=== PATIENT | male | born 1990 | race Caucasian/White ===

== ENCOUNTER 2016-09-26 17:24 | Inpatient (IN) | payer OTHER ==
[~2016-09-26] VITALS: Ht 177.8 cm; Wt 79.4 kg
[2016-09-26 00:15] VITALS: BP_SYST 135; RESP 22; TEMP 100.2
[2016-09-26] MEDS ORDERED: SODIUM CHLORIDE 0.9% 1,000 ML ONE ×2 (17:53→18:06)
[2016-09-26] MEDS ORDERED: CEFTRIAXONE 1 GM VIAL ONE (21:01)
[2016-09-26] MEDS ORDERED: SODIUM CHLORIDE 0.9% 100 ML IV ONE (21:01)
[2016-09-26] MEDS ORDERED: MAG HYDROX 30 ML UDC PO PRN (22:10)
[2016-09-26] MEDS ORDERED: SALINE FLUSH 10 ML FLUSH PRN (22:10)
[2016-09-26] MEDS ORDERED: ACETAMINOPHEN 325 MG TAB PO PRN (22:10)
[2016-09-26] MEDS ORDERED: BISACODYL EC 5 MG TAB PO PRN (22:10)
[2016-09-26] MEDS ORDERED: ALU/MAG/SIM 30 ML UDC PO PRN (22:10)
[2016-09-26] MEDS ORDERED: BISACODYL 10 MG SUPP RECTAL PRN (22:10)
[2016-09-26] MEDS ORDERED: MORPHINE 2 MG/ML SYR IV PRN (22:10)
[2016-09-27] VITALS (13 sets, daily range): BP systolic 104–135; RESP 16–22; TEMP 97.1–104.9; BMI 25.1
[2016-09-27] MEDS: SODIUM CHLORIDE 0.9% FLUSH BAG 500 ML IV SCH ×2 (00:53)
[2016-09-27] MEDS ORDERED: MISSING DOSE XX ONE (01:00)
[2016-09-27] MEDS: ACETAMINOPHEN 325 MG TAB PO PRN (01:02)
[2016-09-27] MEDS: PIPERACIL/TAZO 3.375GM/50ML 50 ML IV SCH ×5 (01:11→23:13)
[2016-09-27] MEDS ORDERED: MAGNEVIST 15ML IV ONE (07:07)
[2016-09-27] MEDS: ENOXAPARIN 40 MG/0.4 ML SYR SUBQ SCH (09:09)
[2016-09-27] MEDS: SALINE FLUSH 10 ML FLUSH SCH ×2 (09:09→20:00)
[2016-09-27] MEDS: FAMOTIDINE 20 MG TAB PO SCH ×2 (09:09→21:10)
[2016-09-27] MEDS ORDERED: PHARMACY TO DOSE VANCOMYCIN IV SCH (14:15)
[2016-09-27] MEDS: VANCOMYCIN 1,250 MG in SODIUM CHLORIDE 0.9% 250 ML IV SCH ×2 (16:38→23:12)
[2016-09-27] MEDS: SODIUM CHLORIDE 0.9% 1,000 ML IV SCH (23:12)
[2016-09-28] VITALS (7 sets, daily range): BP systolic 117–138; RESP 16–18; TEMP 98.1–99.7
[2016-09-28] MEDS: MORPHINE 4 MG/ML SYR IV PRN ×5 (03:21→22:27)
[2016-09-28] MEDS: SODIUM CHLORIDE 0.9% FLUSH BAG 500 ML IV SCH ×2 (06:00)
[2016-09-28] MEDS: PIPERACIL/TAZO 3.375GM/50ML 50 ML IV SCH ×4 (06:06→23:04)
[2016-09-28] MEDS: SALINE FLUSH 10 ML FLUSH SCH ×2 (06:07→20:17)
[2016-09-28] MEDS: VANCOMYCIN 1,250 MG in SODIUM CHLORIDE 0.9% 250 ML IV SCH ×2 (08:55→16:25)
[2016-09-28] MEDS: ENOXAPARIN 40 MG/0.4 ML SYR SUBQ SCH (08:55)
[2016-09-28] MEDS: FAMOTIDINE 20 MG TAB PO SCH ×2 (08:55→20:17)
[2016-09-28] MEDS: SODIUM CHLORIDE 0.9% 1,000 ML IV SCH (14:43)
[2016-09-28] MEDS ORDERED: VANCOMYCIN 500 MG in SODIUM CHLORIDE 0.9% 100 ML IV ONE (18:00)
[2016-09-28] MEDS: VANCOMYCIN 1,750 MG in SODIUM CHLORIDE 0.9% 500 ML IV SCH (23:36)
[2016-09-29] MEDS: MORPHINE 4 MG/ML SYR IV PRN ×5 (03:05→21:26)
[2016-09-29 03:56] VITALS: BP_SYST 135; RESP 18; TEMP 98.7
[2016-09-29] MEDS: SODIUM CHLORIDE 0.9% FLUSH BAG 500 ML IV SCH ×2 (04:13)
[2016-09-29] MEDS: PIPERACIL/TAZO 3.375GM/50ML 50 ML IV SCH ×4 (07:00→23:07)
[2016-09-29 07:34] VITALS: BP_SYST 129; RESP 18; TEMP 97.5
[2016-09-29] MEDS: SALINE FLUSH 10 ML FLUSH SCH ×2 (08:00→20:34)
[2016-09-29] MEDS: SODIUM CHLORIDE 0.9% 1,000 ML IV SCH (08:38)
[2016-09-29] MEDS: FAMOTIDINE 20 MG TAB PO SCH ×2 (08:39→20:35)
[2016-09-29] MEDS: ENOXAPARIN 40 MG/0.4 ML SYR SUBQ SCH (08:39)
[2016-09-29] MEDS: VANCOMYCIN 1,750 MG in SODIUM CHLORIDE 0.9% 500 ML IV SCH ×2 (08:39→16:59)
[2016-09-29 11:52] VITALS: BP_SYST 122; RESP 18; TEMP 98
[2016-09-29 15:23] VITALS: BP_SYST 114; RESP 18; TEMP 98.4
[2016-09-29 19:30] VITALS: BP_SYST 113; RESP 18; TEMP 97.5
[2016-09-29] MEDS: LINEZOLID 600 MG TAB PO SCH (20:34)
[2016-09-29 22:30] VITALS: BP_SYST 98; RESP 18; TEMP 99.5
[2016-09-29] MEDS: ACETAMINOPHEN 325 MG TAB PO PRN (23:35)
[2016-09-30] MEDS: MORPHINE 4 MG/ML SYR IV PRN ×3 (01:21→09:40)
[2016-09-30] MEDS: SODIUM CHLORIDE 0.9% FLUSH BAG 500 ML IV SCH ×2 (02:28)
[2016-09-30 03:14] VITALS: BP_SYST 115; RESP 18; TEMP 98.9
[2016-09-30] MEDS: PIPERACIL/TAZO 3.375GM/50ML 50 ML IV SCH ×4 (05:17→23:36)
[2016-09-30 07:32] VITALS: BP_SYST 118; RESP 18; TEMP 98.3
[2016-09-30] MEDS: FAMOTIDINE 20 MG TAB PO SCH ×2 (08:17→20:22)
[2016-09-30] MEDS: SALINE FLUSH 10 ML FLUSH SCH ×2 (08:17→20:22)
[2016-09-30] MEDS: LINEZOLID 600 MG TAB PO SCH ×2 (08:17→20:22)
[2016-09-30] MEDS: ENOXAPARIN 40 MG/0.4 ML SYR SUBQ SCH (08:18)
[2016-09-30] MEDS: LIDOCAINE 5% 700 MG PATCH TOPICAL SCH (10:29)
[2016-09-30 11:25] VITALS: BP_SYST 127; RESP 16; TEMP 98.7
[2016-09-30] MEDS: OXYCODONE/APAP 5/325 TAB PO PRN ×2 (13:34→18:35)
[2016-09-30 15:50] VITALS: BP_SYST 116; RESP 16; TEMP 98.7
[2016-09-30] MEDS ORDERED: KCL CR 20 MEQ TAB PO ONE (16:40)
[2016-09-30 19:32] VITALS: BP_SYST 113; RESP 18; TEMP 97.9
[2016-09-30 22:58] VITALS: BP_SYST 108; RESP 18; TEMP 97.9
[2016-10-01] MEDS: OXYCODONE/APAP 5/325 TAB PO PRN ×5 (00:21→21:00)
[2016-10-01 02:59] VITALS: BP_SYST 108; RESP 18; TEMP 98.1
[2016-10-01] MEDS: SODIUM CHLORIDE 0.9% FLUSH BAG 500 ML IV SCH ×2 (03:56→05:30)
[2016-10-01] MEDS: PIPERACIL/TAZO 3.375GM/50ML 50 ML IV SCH ×2 (05:28→12:16)
[2016-10-01 07:10] VITALS: BP_SYST 118; RESP 18; TEMP 98.5
[2016-10-01] MEDS: LIDOCAINE 5% 700 MG PATCH TOPICAL SCH (08:22)
[2016-10-01] MEDS: SALINE FLUSH 10 ML FLUSH SCH ×2 (08:22→20:00)
[2016-10-01] MEDS: LINEZOLID 600 MG TAB PO SCH (08:23)
[2016-10-01] MEDS: ENOXAPARIN 40 MG/0.4 ML SYR SUBQ SCH (08:23)
[2016-10-01] MEDS: FAMOTIDINE 20 MG TAB PO SCH ×2 (08:23→20:34)
[2016-10-01 11:09] VITALS: BP_SYST 128; RESP 18; TEMP 98.1
[2016-10-01 15:01] VITALS: BP_SYST 112; RESP 16; TEMP 98.2
[2016-10-01 19:45] VITALS: BP_SYST 110; RESP 18; TEMP 97.8
[2016-10-01 23:22] VITALS: BP_SYST 113; RESP 18; TEMP 98.1
[2016-10-02] MEDS: OXYCODONE/APAP 5/325 TAB PO PRN ×6 (00:28→22:28)
[2016-10-02 02:57] VITALS: BP_SYST 109; RESP 18; TEMP 98.6
[2016-10-02 07:21] VITALS: BP_SYST 118; RESP 16; TEMP 97.9
[2016-10-02] MEDS: LIDOCAINE 5% 700 MG PATCH TOPICAL SCH (08:45)
[2016-10-02] MEDS: SALINE FLUSH 10 ML FLUSH SCH ×2 (08:45→20:00)
[2016-10-02] MEDS: FAMOTIDINE 20 MG TAB PO SCH ×2 (08:46→20:02)
[2016-10-02] MEDS: ENOXAPARIN 40 MG/0.4 ML SYR SUBQ SCH (08:46)
[2016-10-02] MEDS: CEFTRIAXONE 2 GM in SODIUM CHLORIDE 0.9% 50 ML IV SCH (08:53)
[2016-10-02] MEDS ORDERED: LORAZEPAM 2 MG/ML VIAL IV ONE (11:25)
[2016-10-02 11:32] VITALS: BP_SYST 129; RESP 18; TEMP 97.6
[2016-10-02 15:05] VITALS: BP_SYST 112; TEMP 98.2
[2016-10-02] MEDS ORDERED: LORAZEPAM 2 MG/ML VIAL ONE (18:23)
[2016-10-02] MEDS ORDERED: MAGNEVIST 15ML IV ONE (19:15)
[2016-10-02 20:08] VITALS: BP_SYST 115; RESP 18; TEMP 97.5
[2016-10-03] VITALS: BP_SYST 122; RESP 18; TEMP 97.9
[2016-10-03] MEDS: OXYCODONE/APAP 5/325 TAB PO PRN ×5 (02:49→20:40)
[2016-10-03 04:00] VITALS: BP_SYST 127; RESP 18; TEMP 97.9
[2016-10-03 07:39] VITALS: BP_SYST 123; RESP 18; TEMP 97.8
[2016-10-03] MEDS: SALINE FLUSH 10 ML FLUSH SCH ×2 (08:48→20:00)
[2016-10-03] MEDS: FAMOTIDINE 20 MG TAB PO SCH ×2 (08:48→20:39)
[2016-10-03] MEDS: CEFTRIAXONE 2 GM in SODIUM CHLORIDE 0.9% 50 ML IV SCH (08:48)
[2016-10-03] MEDS: ENOXAPARIN 40 MG/0.4 ML SYR SUBQ SCH (08:49)
[2016-10-03] MEDS: LIDOCAINE 5% 700 MG PATCH TOPICAL SCH (08:50)
[2016-10-03 11:59] VITALS: BP_SYST 128; RESP 18; TEMP 97.8
[2016-10-03 15:27] VITALS: BP_SYST 123; RESP 18; TEMP 97.9
[2016-10-03 19:21] VITALS: BP_SYST 135; RESP 18; TEMP 98.1
[2016-10-04 03:23] VITALS: BP_SYST 119; RESP 20; TEMP 98.6
[2016-10-04] MEDS: OXYCODONE/APAP 5/325 TAB PO PRN ×4 (03:25→20:53)
[2016-10-04 07:21] VITALS: BP_SYST 123; RESP 20; TEMP 97.7
[2016-10-04] MEDS: CEFTRIAXONE 2 GM in SODIUM CHLORIDE 0.9% 50 ML IV SCH (08:28)
[2016-10-04] MEDS: LIDOCAINE 5% 700 MG PATCH TOPICAL SCH (08:28)
[2016-10-04] MEDS: SALINE FLUSH 10 ML FLUSH SCH ×2 (08:29→20:53)
[2016-10-04] MEDS ORDERED: KCL 20 MEQ/15 ML UDC PO ONE (09:15)
[2016-10-04 11:28] VITALS: BP_SYST 136; RESP 18; TEMP 97.6
[2016-10-04] MEDS: FAMOTIDINE 20 MG TAB PO SCH ×2 (11:56→20:53)
[2016-10-04] MEDS ORDERED: MEPERIDINE 25 MG/ML ONE (14:00)
[2016-10-04] MEDS ORDERED: MIDAZOLAM 2 MG/2 ML INJ ONE (14:00)
[2016-10-04 15:41] VITALS: BP_SYST 132; RESP 18; TEMP 97.9
[2016-10-04 19:30] VITALS: BP_SYST 136; RESP 18; TEMP 97.8
[2016-10-04 23:53] VITALS: BP_SYST 137; RESP 18; TEMP 98.1
[2016-10-05 04:01] VITALS: BP_SYST 127; RESP 18; TEMP 98.3
[2016-10-05 04:02] VITALS: BP_SYST 129; RESP 18; TEMP 98.3
== END 2016-10-05 04:10 | disposition short-term general hospital (02) | DRG 871 ==
LOC: ENRESERVTM → ENRESERVDT → ER 17:24 → EMR 22:08 → ENPENDDIS 22:08 → PCU2 09-27 00:26 → PCU 09-27 17:45
PROVIDERS: ADMIT Internal Medicine; ATTEND Internal Medicine
PROC: B246ZZ4 Ultrasonography of Right and Left Heart, Transesophageal (ICD-10-PCS; principal; 2016-10-04)
CPT/HCPCS: 36415; 72156; 72157; 72158; 80048; 80053; 80074; 80202; 81001; 82140; 82274; 82565; 83540; 83605; 83735; 84439; 84443; 84466; 84520; 85025; 85610; 85652; 86701; 87040; 87077; 87088; 87186; 87491; 87591; 93306; 93312; 94799; 96360; 96361; 96365; 96366; 99223; 99232; 99233; 99238